=== PATIENT | male | born 1955 | race Caucasian/White ===

== ENCOUNTER 2022-12-24 06:51 | Day surgery (SDC) | payer OTHER, MEDICARE ==
[2022-12-23 10:11] LABS: Potassium 4.5 mEq/L (3.5-5.1)
[2022-12-24] MEDS: Ringers Lactate 1,000 ML IV ONE ×2 (07:30→07:55)
[2022-12-24] MEDS ORDERED: propofoL 200 MG/20 ML VIAL IV ONE (07:38)
[2022-12-24] MEDS ORDERED: LIDOCAINE 1% MPF 30 ML VIAL ONE (07:38)
[2022-12-24 09:21] VITALS: BP 132/73; TEMP 97.8; O2SAT 98
== END 2022-12-24 09:33 | disposition home or self-care (01) ==
LOC: OR 06:51
PROVIDERS: ATTEND Surgery
PROC: 0DBL8ZX Excision of Transverse Colon, Via Natural or Artificial Opening Endoscopic, Diagnostic (ICD-10-PCS; principal; 2022-12-24 08:00)
DX: Z12.11 Encounter for screening for malignant neoplasm of colon (principal); D12.3 Benign neoplasm of transverse colon; K64.8 Other hemorrhoids
CPT/HCPCS: 80048; 36415; 88305; 45385; J2704; J2001; J7120